=== PATIENT | male | born 1985 | race American Indian/Alaskan Native ===

== ENCOUNTER 2020-09-02 21:14 | Emergency (ER) | payer SELFPAY ==
[2020-09-02] MEDS ORDERED: Sodium Chloride 0.9% 10 ML Syringe FLUSH PRN (21:39)
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
[2020-09-02] MEDS ORDERED: Gabapentin 300 MG Cap PO ONE (22:59)
[2020-09-02] MEDS ORDERED: traMADol 50 MG Tab PO ONE (23:00)
== END 2020-09-02 23:14 ==
LOC: JD.ED 21:14
DX: T33.832A Superficial frostbite of left toe(s), initial encounter (principal); T33.831A Superficial frostbite of right toe(s), initial encounter; T33.532A Superficial frostbite of left finger(s), initial encounter; T33.531A Superficial frostbite of right finger(s), initial encounter; Z20.822 Contact with and (suspected) exposure to COVID-19; Z79.899 Other long term (current) drug therapy; Z72.0 Tobacco use
CPT/HCPCS: 36415; 80053; 85025; 85379; 85610; 85730; 87635; 99283; A9270; 99284; U0002